=== PATIENT | male | born 1995 | race Caucasian/White ===

== ENCOUNTER 2023-01-05 23:40 | Emergency (ER) | payer MEDICAID, OTHER ==
[~2023-01-05] VITALS: Ht 180.3 cm; Wt 81.0 kg
[2023-01-05 23:45] VITALS: O2SAT 99
[2023-01-05] MEDS ORDERED: ONDANSETRON HCL 4MG/2ML INJ IV STA (23:52)
[2023-01-05] MEDS ORDERED: KETOROLAC 30MG/ML VIAL IV STA (23:52)
[2023-01-06 00:15] LABS: BASOPHILS % 0.3 % (0.0-2.0); EOSINOPHILS % 0.3 % (0.0-5.0); LYMPHOCYTES % 13.3 % (20.0-50.0); MEAN CORPUSCULAR HGB CONC 34.9 g/dL (31.0-37.0); MEAN CORPUSCULAR VOLUME 91.9 fL (80.0-94.0); MEAN PLATELET VOLUME 9.1 fl (7.4-10.4); MONOCYTES % 5.3 % (2.0-8.0); NEUTROPHILS % 80.8 % (40.0-76.0); PLATELET 245 x1000/uL (130-400); RED BLOOD CELL COUNT 4.67 mill/uL (4.7-6.1); RED CELL DISTRIBUTION WIDTH 12.7 % (11.6-14.6); WHITE BLOOD COUNT 16.2 x1000/uL (4.5-11.0)
[2023-01-06] MEDS ORDERED: MORPHINE SULFATE 4 MG/ML CPJ (NOT FOR IM USE) IV ONE ×2 (00:15→01:30)
[2023-01-06 00:24] LABS: CHLORIDE 108 mEq/L (98-107); INDEX HEMOLYSI 3 (1-3); INDEX ICTERIC 1 (1-4); INDEX LIPEMIC 1 (1-3); INR 1.1; POTASSIUM 3.5 mEq/L (3.5-5.1); PROTHROMBIN TIME 11.4 sec (9.6-11.0); SODIUM 138 mEq/L (136-145)
[2023-01-06 00:31] LABS: ALANINE AMINOTRANSFERASE 32 IU/L (13-61); ALBUMIN 4.2 g/dL (3.4-5.0); ASPARTATE AMINOTRANSFERASE 17 IU/L (15-37); BILIRUBIN TOTAL 0.9 mg/dL (0.1-1.0); CALCIUM 9.5 mg/dL (8.5-10.1); CARBON DIOXIDE 21 mEq/L (21-32); CREATININE 1.1 mg/dL (0.6-1.3); ETHANOL BLOOD < 10 mg/dL (<10); GLUCOSE 146 mg/dL (70-105); UREA NITROGEN BLOOD 17 mg/dL (7-21)
[2023-01-06 00:31] LABS: CLARITY URINE CLOUDY (CLEAR); COLOR URINE DARK YELLOW (YELLOW); GLUCOSE URINE NEGATIVE (NEGATIVE); KETONES URINE TRACE (NEGATIVE); LEUKOCYTE ESTERASE URINE NEGATIVE (NEGATIVE); NITRITE URINE NEGATIVE (NEGATIVE); OCCULT BLOOD URINE 3+ (NEGATIVE); PH URINE 5.5 (4.5-8.0); PROTEIN URINE 1+ (NEGATIVE); SPECIFIC GRAVITY URINE 1.032 (1.005-1.030)
[2023-01-06 00:33] LABS: BACTERIA URINE NONE SEEN; YEAST URINE NONE SEEN
[2023-01-06 00:44] VITALS: BP 122/89
[2023-01-06 00:44] LABS: *AMPHETAMINES SCREEN URINE NEGATIVE (NEGATIVE); *BARBITURATES SCREEN URINE NEGATIVE (NEGATIVE); *BENZODIAZEPINES SCREEN URINE NEGATIVE (NEGATIVE); *COCAINE SCREEN URINE NEGATIVE (NEGATIVE); CANNABINOID URINE SCREEN PRESUMTIVE POSITIVE (NEGATIVE); ECSTASY MDMA SCREEN URINE NEGATIVE (NEGATIVE); OPIATES URINE SCREEN NEGATIVE (NEGATIVE); PHENCYCLIDINE URINE SCREEN NEGATIVE (NEGATIVE)
[2023-01-06] MEDS ORDERED: ONDANSETRON HCL 4MG/2ML INJ IV ONE ×2 (01:00→01:45)
[2023-01-06] MEDS ORDERED: TAMSULOSIN HCL 0.4MG SR CAPSULE PO ONE (02:30)
[2023-01-06] MEDS ORDERED: SODIUM CHLORIDE 0.9% 1,000 ML IV ONE ×2 (02:30)
[2023-01-06] MEDS ORDERED: CEPHALEXIN 250MG CAPSULE PO ONE (02:30)
[2023-01-06 02:54] LABS: SQUAMOUS EPITHELIAL CELL URINE FEW /lpf (RARE/1+); WBC URINE 0-2 /hpf (0-2)
[2023-01-06 02:55] LABS: CALCIUM OXALATE CRYSTALS URINE 1+ /lpf
[2023-01-06] MEDS ORDERED: IBUP-2029 MT (04:18)
[2023-01-06] MEDS ORDERED: HYDR-4009 MT (04:18)
[2023-01-06] MEDS ORDERED: CEPH500C2 MT (04:18)
[2023-01-06] MEDS ORDERED: TAMS-11 MT (04:18)
[2023-01-06 04:50] VITALS: PULSE 69; RESP 18; TEMP 98.7
== END 2023-01-06 04:53 | disposition home or self-care (01) ==
LOC: ER 23:40
DX: N20.1 Calculus of ureter (principal); R42 Dizziness and giddiness
CPT/HCPCS: 80053; 80320; 83690; 85025; 85610; 36415; 99285; 80305; 81003; 74176; 93976; 76870; 96361; 96374; 96375; 96376; J1885; J2405; J2270; J7030; Z7610 ×2; G0480